=== PATIENT | male | born 1985 | race Caucasian/White ===

== ENCOUNTER → 2019-05-28 13:34 | Outpatient (CLI) | payer BC, SELFPAY ==
--- NOTE | 2019-05-28 13:39 | XR_ITS ---
PROCEDURE: XR KUB CLINICAL INDICATION: possible kidney stone Right flank pain, hematuria COMPARISON: No exams were available for comparison FINDINGS: There are 2 rounded calcific densities with spiculated margins each measuring 9 mm in the right upper quadrant inter more consistent with gallstones. They do however overlie the upper pole of the right kidney. Renal stones are also considered. Unenhanced CT of the abdomen may further evaluate. Suture line is present in the right mid abdominal region. No ureteral calculi are evident. IMPRESSION: Right upper quadrant calcifications which may be due to gallstones. Consider CT for confirmation. Renal stones felt to be less likely but not entirely excluded Dictated by: Kishor Christianson MD 05/28/2019 14:21 Electronically signed by Kishor Christianson MD in [place] 05/28/2019 14:21
== END ==
PROVIDERS: Visit Provider Urology
DX: R31.0 Gross hematuria (principal)
CPT/HCPCS: 74018

== ENCOUNTER → 2019-06-04 09:20 | Outpatient (CLI) | payer BC, SELFPAY ==
--- NOTE | 2019-06-04 09:30 | XR_ITS ---
PROCEDURE: XR KUB CLINICAL INDICATION: kidney stone COMPARISON: XR KUB from 05/28/2019 FINDINGS: Right upper quadrant calcifications are present and project beyond the superior aspect of the right kidney consistent with cholelithiasis. Tiny bilateral calcifications within the pelvis and may be due to phleboliths not significantly changed. No definite renal or ureteral calculi. IMPRESSION: Cholelithiasis otherwise negative Dictated by: Kishor Christianson MD 06/04/2019 18:58 Electronically signed by Kishor Christianson MD in [place] 06/04/2019 18:58
== END ==
PROVIDERS: Visit Provider Urology
DX: N20.0 Calculus of kidney (principal)
CPT/HCPCS: 74018